=== PATIENT | female | born 1995 | race American Indian/Alaskan Native ===

== ENCOUNTER 2021-08-15 20:06 | Outpatient (CLI) | payer MEDICAID ==
[2021-08-15] MEDS ORDERED: LACTATED RINGERS 500 ML IV ONE (20:17)
[2021-08-15 20:49] VITALS: BP 134/76
[2021-08-15] MEDS ORDERED: LACTATED RINGERS 1,000 ML IV ONE (20:59)
[2021-08-15 21:29] LABS: Bacteria,Urine 1+ /HPF (Negative); Bilirubin,Urine NEG (Negative); Blood,Urine NEG (Negative); Color,Urine Yellow (Yellow); Mucus,Urine 1+ /HPF
[2021-08-15] MEDS ORDERED: TERBUTALINE 1 MG/1 ML INJ SUB-Q SCH (21:30)
[2021-08-15] MEDS ORDERED: ACETAMINOPHEN 500 MG TAB PO ONE (21:30)
== END 2021-08-15 23:22 | disposition home or self-care (01) ==
LOC: TRG 20:06 → APU 20:08 → TRG 23:22
PROVIDERS: ATTEND Student in an Organized Health Care Education/Training Program
DX: O26.893 Other specified pregnancy related conditions, third trimester (principal); R10.30 Lower abdominal pain, unspecified; Z3A.34 34 weeks gestation of pregnancy
CPT/HCPCS: 36415; 59025; 81001; 84112; 96360; 96372; J3105; J7120; 96366